=== PATIENT | female | born 1985 | race Caucasian/White ===

== ENCOUNTER 2017-05-24 17:32 | Emergency (ER) | payer OTHER ==
[~2017-05-24] VITALS: Ht 157.5 cm; Wt 71.8 kg
[2017-05-24 17:38] VITALS: BP 124/85; PULSE 114; RESP 22; O2SAT 100
--- NOTE | 2017-05-24 18:06 | ED.REPORT ---
HPI-Chest Pain Under 40 Date of Service May 24, 2017 ED Provider: Dr. Mcdonough 32 y/o female with a hx of graves disease and HTN during her second ( no longer taking medications) presents to the ED complaining of left sided chest tightness, while she was at work 5 hours ago. Her pain is exacerbated with deep breathing. The pt took 8 Aspirin tablets prior to arrival which helped temporarily but then the pain returned. Associated sx include left arm numbness and tingling in her right hand. She also complains of diarrhea and nausea all day yesterday. She states I felt like I had the flu yesterday. She denies anxiety, stress, chest trauma and family hx of [place]. She also denies cough and any other symptoms. The pt has a hormone releasing IUD. Nursing Notes Stated Complaint: CHEST PAIN, PAIN IN LEFT ARM Chief Complaint: Chest Pain Nursing Notes Reviewed: Yes Allergies: Coded Allergies: amoxicillin (Verified Allergy, Intermediate, hives, 05/24/17) General Time Seen by MD: 18:06 Chief Complaint Chest pain Hx Obtained From: Patient Arrived By: Walk-in Sudden in Onset?: Yes Onset Occurred: 5 - 8 hours ago Symptom Duration: Since onset Location: : Chest left Radiation: : Does not radiate Severity: Current: Moderate Severity: Maximum: Severe Recent Healthcare: No recent doctor visit Similar Sx Previous: No Risk Factors )( CAD Risk Stratification No Family history, No Hypertension Risk factors reviewed, No risk factors TAD Risk Stratification No 1st degree relative, No Aortic valve disease, No Coarctation of aorta, No Kristin-Danlos syndrome )( PE Risk Stratification Risk factors reviewed HEART Score HEART for MACE: Low index of susp (0), Normal ECG (0), Age under 45 (0), No risk factors known (0) HEART for MACE Score: 0-3 (low risk 0.9%-1.7%) PERC Rule PERC Result: One or more crit "Yes", PERC rule not satisfied Past Medical History Past Medical History HTN and Graves disease during second (not on medications anymore) Past Surgical History none reported Smoking History Never Smoker Social History Alcohol Use: Denies alcohol use Ambulatory Status Independent Review of Systems + right arm tingling - chest trauma Constitutional: Denies: Chills Respiratory: Reports: Pleuritic pain, Denies: Dyspnea on exertion, Non-productive cough Cardiovascular: Reports: Chest pain GI: Denies: Abdominal pain Skin: Denies Bruising Neurologic: Reports: Numbness (left arm), Denies: Bladder dysfunction Psychiatric: Denies: Anxiety, Stress Complete sys rev & neg: except as marked. Physical Exam Initial Vital Signs Vital Signs (First) Date Time Temp Pulse Resp B/P Pulse Ox O2 Delivery O2 Flow Rate FiO2 05/24/17 17:38 36.9 114 22 124/85 100 Room Air Initial VS: Reviewed Head / Eyes: Atraumatic, Normocephalic Neck: Supple, Non-tender, Full range of motion Abdomen / GI: Soft, Non-tender, No guarding, No rebound, No distention Extremities: Vascular intact, Neuro intact, No swelling, No tenderness Skin: Warm, Dry, No cyanosis Neurologic: Alert, Oriented, Nonfocal General/Constitutional: Awake, Alert, No acute distress, Well appearing, Cooperative Respiratory / Chest: Atraumatic, Breath sounds NL, Breath sounds = bilat, No respiratory distress, No rales, No rhonchi, No wheezing Cardiovascular: Regular rhythm, Heart sounds NL, No murmurs, No rubs Heart Rate / Rhythm: Positive: Tachycardia Interpretation & Diagnostics Lab Results Interpretation Result Diagram: 05/24/17 1859 05/24/17 1859 Test 05/24/17 18:59 05/24/17 20:35 05/24/17 21:41 White Blood Count 10.1th/mm3 (3.8-10.1) Red Blood Count 4.63mil/mm3 (3.90-5.20) Hemoglobin 13.5g/dL (12.0-15.6) Hematocrit 39.5% (35.0-46.0) Mean Corpuscular Volume 85fL (81-100) Mean Corpuscular Hemoglobin 29.2pg (27.0-35.0) Mean Corpuscular Hemoglobin Concent 34.2% (32.0-37.0) Red Cell Distribution Width 12.5% (12.3-15.4) Platelet Count 299bil/L (150-400) Neutrophils (%) (Auto) 67% (40-74) Lymphocytes (%) (Auto) 25% (14-46) Monocytes (%) (Auto) 4% (4-12) Eosinophils (%) (Auto) 1% (0-5) Basophils (%) (Auto) 0% (0-3) Band Neutrophils % 0% (1-5) Sodium Level 137mEq/L (134-144) Potassium Level 3.5mEq/L (3.5-5.2) Chloride Level 99mEq/L (97-108) Carbon Dioxide Level 23mmol/L (18-29) Blood Urea Nitrogen 13mg/dL (6-20) Creatinine 0.50mg/dL (0.57-1.00) Estimat Glomerular Filtration Rate 204mL/min (>59) Glucose Level 108mg/dL (60-99) Calcium Level 9.1mg/dL (8.5-10.1) Magnesium Level 1.8mg/dL (1.6-2.6) Total Bilirubin 0.4mg/dL (0.0-1.2) Aspartate Amino Transf (AST/SGOT) 22U/L (0-50) Alanine Aminotransferase (ALT/SGPT) 16U/L (0-32) Alkaline Phosphatase 51U/L (25-150) Total Protein 7.2g/dL (6.4-8.4) Albumin 4.5g/dL (3.4-5.0) Thyroid Stimulating Hormone (TSH) 2.000uIU/mL (0.450-4.500) D-Dimer < 0.50mg/L FEU (<0.50) Troponin T 0.010ug/L (0.0-0.011) Lab values outside NL range: no clinical significance. Pulse Oximetry Interpretation Pulse Oximetry: Pulse Ox normal, On room air ECG Interpretation ECG Interpretation: Sinus rhythm with artifact. Rate 117. Normal ST segments Time: 17:46 Interpreted by: ED physician Rhythm Strip Interpretation : Rhythm Strip Interpretation: Sinus tachycardia (rate shot up to about 140.) CBC Interpretation CBC normal BMP / CMP Interpretation BMP/CMP normal X-Ray Chest Interpretation Chest Xray Interpretation: IMPRESSION: No acute disease is seen in the upright portable chest. Dictated by: Yanick Bennett M.D. on 05/24/2017 at 18:04 Approved by: Yanick Bennett M.D. on 05/24/2017 at 18:08 View: Portable, 1 view Interpretation / Wet Read by: Interpret - Radiologist Re-Eval/Medical Decision Med Decision/Clinical Course PE ruled out with d-dimer and CT imaging. Tachycardia was spontaneous and was aborted with IV metoprolol. This was a narrow complex tachycardia that appeared to be sinus. Thyroid studies are normal. Surgical palms are negative. She felt better after the beta carol. I suspect she is suffering from some form of atrial tachycardia or possibly a reentrant tachycardia. Otherwise she is hemodynamically stable and she has been in sinus rhythm with rate in the 60s for 3 hours. She is ready to be discharged home. I will refer her to primary care as well as cardiology. Re-Evaluation/Progress #1: Time of Eval: 22:47 Re-Evaluation/Progress Note: Rechecked pt. She continues to experience pain and is tachycardic. Re-Evaluation/Progress #2: Time of Eval: 00:25 Re-Evaluation/Progress Note: Rechecked pt. She is tachycardic and in severe pain. She'd like a CT chest done. Counseled Regarding: Diagnosis, Lab results, Need for follow-up, When/why to return to ED Discharge & Departure Primary Impression: Chest pain Chest pain type: other chest pain Qualified Code: R07.89 - Other chest pain Additional Impression: Tachycardia Disposition: Home Discharge Condition All VS Reviewed: Yes Patient Instructions: Chest Pain (ED) Additional Instructions: Thank you for entrusting us with your care today. Your HEART score was 0. Your EKG, X-ray and lab results were reassuring. A heart attack is highly unlikely given your EKG and Troponin levels. The cause of your pain is uncertain but not life threatening. Call your primary care provider tomorrow for further evaluation. Return to the emergency department if your pain significantly worsens or in case of any new or worsening symptoms. Your heart rate did bump up to 140 spontaneously. This may imply some form of reentrant tachycardia. I would like him to set up a follow-up with Dr. Devlin to discuss this. 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 Blood clot was ruled out. Return if any problems or any new or worsened symptoms. Call the cardiology clinic or primary care physician tomorrow morning to set up a follow-up. Referrals: Pritesh Devlin MD [facility] Scribe Attestation Portions of this note were transcribed by Louie Giron. I,, personally performed the history, physical exam and medical decision-making;I reviewed and confirmed the accuracy of the information in the transcribed note. Signed by Linda Carlton. 05/25/17 00:36 Steven Mcdonough DO May 24, 2017 18:06 Louie Giron May 24, 2017 18:12
--- NOTE | 2017-05-24 18:10 | DRSVH ---
PROCEDURE: X-RAY CHEST ONE VIEW, PORTABLE ([id number]) INDICATIONS: cp TECHNIQUE: One view of the chest was acquired. COMPARISON: None. FINDINGS: Surgical changes and devices: None. Lungs and pleura: No pleural effusions or pneumothorax. Lungs are clear. Mediastinum: Mediastinal contours appear normal. Heart size is normal. Bones and chest wall: No suspicious bony lesions. Overlying soft tissues appear unremarkable. IMPRESSION: No acute disease is seen in the upright portable chest. Dictated by: Yanick Bennett M.D. on 05/24/2017 at 18:04 Approved by: Yanick Bennett M.D. on 05/24/2017 at 18:08
[2017-05-24 18:56] VITALS: BP 116/50; PULSE 77; RESP 22; O2SAT 99
[2017-05-24 19:04] LABS: Mean Corpuscular Hemoglobin 29.2 pg (27.0-35.0); Mean Corpuscular Volume 85 fL (81-100)
[2017-05-24 19:05] LABS: BASOPHILS % (AUTO) 0 % (0-3); EOSINOPHILS % (AUTO) 1 % (0-5); MONOCYTES % (AUTO) 4 % (4-12); NEUTROPHILS % (AUTO) 67 % (40-74); Platelet Count 299 bil/L (150-400)
[2017-05-24 19:44] LABS: TROPONIN T < 0.010 ug/L (0.0-0.011)
[2017-05-24 19:45] LABS: Magnesium 1.8 mg/dL (1.6-2.6)
[2017-05-24 20:13] VITALS: BP 137/57; PULSE 72; RESP 14; O2SAT 99
[2017-05-24] MEDS ORDERED: MeTOProlol 1 mg/mL 5 mL Inj IVPUSH SCH (22:50)
[2017-05-24] MEDS ORDERED: 0.9% Sodium Chloride 1,000 ML IV ONE (22:50)
[2017-05-24 23:00] VITALS: BP 138/65; PULSE 77; RESP 12; O2SAT 98
[2017-05-24 23:05] VITALS: BP 119/58; PULSE 60; RESP 16; O2SAT 99
[2017-05-25] MEDS ORDERED: Sodium Chloride LOK Flush 10 mL Syringe IVFLUSH SCH (00:30)
[2017-05-25 01:58] VITALS: BP 122/60; PULSE 89; O2SAT 100
--- NOTE | 2017-05-25 08:04 | DRSVH ---
PROCEDURE: CT ANGIO CHEST PULMONARY EMBOLISM ([id number]) INDICATIONS: tachycardia, pleuritic chest pain,-ekg and xray TECHNIQUE: After the administration of intravenous contrast, 2 mm thick sections acquired from the pulmonary api dodie to the posterior costophrenic angles. 3-dimensional maximum intensity projection (MIP) coronal a nd sagittal reformats were then acquired through the thorax. For radiation dose reduction, the follo wing was used: automated exposure control, adjustment of mA and/or kV according to patient size. COMPARISON: [facility], CR, XR CHEST 1VW (PORTABLE), 05/24/2017, 17:56. FINDINGS: Image quality: Excellent. Pulmonary arteries: Pulmonary arteries are normal in size, and demonstrate no intraluminal filling d efects to suggest central pulmonary embolism. Lungs and pleura: Lungs are clear. No pleural effusions or pneumothorax. Central and peripheral ai rways are patent. Mediastinum: Heart size is normal, without pericardial effusion. No mediastinal or hilar adenopathy . Thoracic aorta is normal in caliber and enhancement. Esophagus is normal in caliber. There is a s mall hiatal hernia. Bones and chest wall: No suspicious bony lesions. Ribs and thoracic spine appear intact throughout. Thyroid gland is normal. No axillary or supraclavicular adenopathy. Abdomen: Visualized upper abdominal solid organs appear normal in the early arterial phase of enhanc ement. IMPRESSION: No evidence for pulmonary embolism. 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 Dictated by: Michael Tolliver M.D. on 05/25/2017 at 7:59 Approved by: Michael Tolliver M.D. on 05/25/2017 at 8:01
== END 2017-05-25 01:58 | disposition home or self-care (01) ==
LOC: SED 17:32
DX: R07.89 Other chest pain (principal); R00.0 Tachycardia, unspecified; I10 Essential (primary) hypertension
CPT/HCPCS: 36415; 71010; 71275; 80053; 83735; 84443; 84484; 85025; 85378; 93005; 96361; 96374; 99285; J7030; Q9967